=== PATIENT | male | born 1950 | race Hispanic/Latino ===

== ENCOUNTER 2023-12-15 18:01 | Inpatient (IN) | payer MEDICARE ==
[~2023-12-15] VITALS: Ht 167.6 cm; Wt 68.4 kg
[~2023-12-15 18:01] MED LIST: HEPARIN 10,000 UNIT/10ML (1,000 UNIT/ML) VIAL IV ONE
[2023-12-15 19:35] VITALS: BP 123/80; PULSE 90; RESP 18
[2023-12-15 19:40] VITALS: O2SAT 97
[2023-12-15 20:15] VITALS: PULSE 79; RESP 18; O2SAT 98
[2023-12-15 20:18] VITALS: PULSE 64; RESP 18; O2SAT 98
[2023-12-15] MEDS ORDERED: AMLO-257 PO (20:57)
[2023-12-15] MEDS ORDERED: TELM20TA8 PO (20:57)
[2023-12-15] MEDS ORDERED: METO-391 PO (20:57)
[2023-12-15] MEDS ORDERED: LEVO-70 PO (20:57)
[2023-12-15] MEDS ORDERED: ATOR10 PO (20:58)
[2023-12-15] MEDS ORDERED: INSULIN HUMULIN R 100 UNIT/ML 3ML SQ SCH (21:00)
[2023-12-15] MEDS ORDERED: NITROGLYCERIN 0.4 MG SL TAB SL PRN (22:30)
[2023-12-15] MEDS ORDERED: GLUCAGON 1MG KIT 1 MG ML IM PRN (22:30)
[2023-12-15] MEDS ORDERED: ACETAMINOPHEN 325 MG TAB PO PRN (22:30)
[2023-12-15] MEDS ORDERED: POTASSIUM CHLORIDE 10% ELIXIR 20 MEQ/15 ML UDCUP PO PRN (22:30)
[2023-12-15] MEDS ORDERED: DEXTROSE 50%-WATER 50 ML DISP.SYRIN IV PRN (22:30)
[2023-12-15] MEDS ORDERED: ONDANSETRON 4MG INJ IV PRN (22:30)
[2023-12-15] MEDS ORDERED: POTASSIUM CHLORIDE 20MEQ/100ML 100 ML IV PRN ×2 (22:30)
[2023-12-15 23:05] VITALS: BP 108/63; PULSE 73; RESP 22
[2023-12-16] VITALS (16 sets, daily range): BP systolic 97–140; BP diastolic 61–86; PULSE 63–111; RESP 16–20; O2SAT 95–99
[2023-12-16] MEDS: CEFTRIAXONE 1G VIAL IV SCH (00:35)
[2023-12-16 03:49] LABS: HEMATOCRIT 35.7 % (42-54); MEAN CORPUSCULAR HGB CONC 34.2 g/dL (32.0-36.0); MEAN CORPUSCULAR VOLUME 90.6 fL (79-99); RED BLOOD CELL COUNT(AUTO) 3.94 MIL/uL (4.50-6.20); RED CELL DISTRIBUTION WIDTH 12.9 % (11.0-15.5); WHITE BLOOD COUNT (AUTO) 6.9 K/uL (4.8-10.8)
[2023-12-16 04:12] LABS: INR 0.98 (0.85-1.15); PROTHROMBIN TIME 11.6 SEC (9.6-11.6)
[2023-12-16 04:13] LABS: PARTIAL THROMBOPLASTIN TIME 27.3 SEC (26.3-35.5)
[2023-12-16 04:26] LABS: HEMOGLOBIN A1C 6.7 % (4.0-6.0)
[2023-12-16 04:40] LABS: ALBUMIN 2.7 g/dL (3.5-5.0); BILIRUBIN,TOTAL 1.4 mg/dL (0.2-1.0); CREATININE 1.4 mg/dL (0.5-1.3); MAGNESIUM 1.7 mg/dL (1.80-2.40); POTASSIUM 3.6 mmol/L (3.5-5.1); THYROID STIMULATING HORMONE 1.78 uIU/mL (0.36-3.74); TOTAL PROTEIN, SERUM 6.1 g/dL (6.0-8.3)
[2023-12-16] MEDS: MAGNESIUM 2GM PREMIX 50ML 50 ML IV PRN (05:17)
[2023-12-16] MEDS: INSULIN HUMULIN R 100 UNIT/ML 3ML SQ SCH (05:46)
[2023-12-16] MEDS: ASPIRIN 81 MG EC TAB PO SCH (07:53)
[2023-12-16] MEDS: CLOPIDOGREL 75MG TAB PO SCH (07:53)
[2023-12-16] MEDS ORDERED: HEPARIN 10,000 UNIT/10ML (1,000 UNIT/ML) VIAL ONE (07:57)
[2023-12-16] MEDS ORDERED: FENTANYL CITRATE PF 50 MCG/1 ML 2ML VIAL ONE (07:57)
[2023-12-16] MEDS ORDERED: NICARDIPINE 25MG INJ IV ONE (07:57)
[2023-12-16] MEDS ORDERED: MIDAZOLAM HCL 1 MG/ML 2ML VIAL ONE (07:57)
[2023-12-16] MEDS ORDERED: IOHEXOL 350 MG/ML 100ML INFUS..BTL IV ONE (07:57)
[2023-12-16] MEDS ORDERED: NITROGLYCERIN 50MG VIAL ONE (07:58)
[2023-12-16] MEDS ORDERED: LIDOCAINE HCL 400MG/20ML VIAL ONE (08:00)
[2023-12-16] MEDS: METOPROLOL SUCCINATE 25 MG TAB.SR.24H PO SCH (09:00)
[2023-12-16] MEDS ORDERED: IOHEXOL-350 75 ML VIAL IV ONE (09:01)
[2023-12-16] MEDS ORDERED: DEXTROSE 50%-WATER 50 ML DISP.SYRIN IV PRN (10:00)
[2023-12-16] MEDS ORDERED: GLUCAGON 1MG KIT 1 MG ML IM PRN (10:00)
[2023-12-16 10:27] LABS: INR 0.95 (0.85-1.15); PROTHROMBIN TIME 11.3 SEC (9.6-11.6)
[2023-12-16 10:29] LABS: PARTIAL THROMBOPLASTIN TIME 26.2 SEC (26.3-35.5)
[2023-12-16] MEDS: HEPARIN 25,000 UNITS/250ML D5W 250 ML IV SCH (10:33)
[2023-12-16 10:49] LABS: ABG BASE EXCESS 1.4 mmol/L (-2.0-3.0); ABG HCO3 25.7 mmol/L (21.0-28.0); ABG OXYGEN SATURATION 92.9 % (95.0-99.0); ABG PCO2 40 mmHg (35-48); ABG PH 7.429 (7.35-7.450); CARBON MONOXIDE 0.4; DEVICE COMMENT RR VALENTINA; PO2, ARTERIAL BG 65.1 mmHg (83.0-108.0); VENT MODE, BG RA (ROOM AIR)
[2023-12-16] MEDS: KCL 20 MEQ ERTAB PO PRN (14:05)
[2023-12-16] MEDS: CLINDAMYCIN 600 MG/50 ML IV SCH (16:00)
[2023-12-16] MEDS: ATORVASTATIN 40 MG TABLET PO SCH (22:17)
[2023-12-17] VITALS (47 sets, daily range): BP systolic 47–207; BP diastolic 33–201; PULSE 82–144; RESP 5–27; TEMP 99.4–99.6; O2SAT 95–100
[2023-12-17 03:37] LABS: BASOPHILS # (AUTO) 0.02 K/uL (0.00-0.20); BASOPHILS % (AUTO) 0.3 % (0.0-5.0); EOSINOPHILS # (AUTO) 0.06 K/uL (0.00-0.70); EOSINOPHILS % (AUTO) 0.9 % (0.0-8.0); HEMATOCRIT 35.6 % (42-54); IMMATURE GRANULOCYTE ABSOLUTE 0.02 K/uL (0-1); LYMPHOCYTES # (AUTO) 1.1 K/uL (1.0-4.8); LYMPHOCYTES % (AUTO) 17.4 % (21.0-51.0); MEAN CORPUSCULAR HEMOGLOBIN 29.9 pg (27.0-33.0); MEAN CORPUSCULAR HGB CONC 34.6 g/dL (32.0-36.0); MEAN CORPUSCULAR VOLUME 86.6 fL (79-99); MONOCYTES # (AUTO) 0.6 K/uL (0.1-1.0); NEUTROPHILS # (AUTO) 4.7 K/uL (1.8-7.7); NEUTROPHILS % (AUTO) 72.1 % (40.0-77.0); PLATELET COUNT (AUTO) 184 K/uL (130-400); RED BLOOD CELL COUNT(AUTO) 4.11 MIL/uL (4.50-6.20); RED CELL DISTRIBUTION WIDTH 12.8 % (11.0-15.5); WHITE BLOOD COUNT (AUTO) 6.5 K/uL (4.8-10.8)
[2023-12-17 03:46] LABS: PROTHROMBIN TIME 11.8 SEC (9.6-11.6)
[2023-12-17 03:47] LABS: PARTIAL THROMBOPLASTIN TIME 62.8 SEC (26.3-35.5)
[2023-12-17 03:56] LABS: HEMOGLOBIN A1C 6.7 % (4.0-6.0)
[2023-12-17 04:00] LABS: B-TYPE NATRIURETIC PEPTIDE 718 pg/mL (0-100)
[2023-12-17 04:13] LABS: ALBUMIN 2.6 g/dL (3.5-5.0); BILIRUBIN,TOTAL 1.3 mg/dL (0.2-1.0); CREATININE 1.2 mg/dL (0.5-1.3); MAGNESIUM 1.8 mg/dL (1.80-2.40); PHOSPHORUS 3.7 mg/dL (2.5-4.9); POTASSIUM 3.4 mmol/L (3.5-5.1); TOTAL PROTEIN, SERUM 6.1 g/dL (6.0-8.3)
[2023-12-17] MEDS ORDERED: AMINOCAPROIC ACID 5,000MG VIAL 15,000 MG in 0.9% NACL 500ML IV.SOLN 420 ML IV PRN (10:30)
[2023-12-17] MEDS ORDERED: EPINEPHRINE PF 1MG (1:1,000) 10 MG in 0.9% NACL 250ML 240 ML IV PRN (10:30)
[2023-12-17] MEDS ORDERED: LIDOCAINE 2G/250ML 250 ML IV ONE (10:47)
[2023-12-17] MEDS ORDERED: NITROGLYCERIN 50MG/D5W 250ML 1 BOT ONE (10:55)
[2023-12-17] MEDS ORDERED: PAPAVERINE HCL 30 MG/ML 2ML VIAL ONE (11:03)
[2023-12-17] MEDS ORDERED: VANCOMYCIN 1G/250ML KIT 250 ML IV ONE (11:04)
[2023-12-17] MEDS: CLINDAMYCIN 900MG/6ML INJ IJ ONE (12:15)
[2023-12-17] MEDS ORDERED: SODIUM BICARB 50MEQ 50ML VIAL 200 ML ONE (12:18)
[2023-12-17] MEDS ORDERED: HEPARIN 10,000 UNIT/10ML (1,000 UNIT/ML) VIAL ONE (12:18)
[2023-12-17] MEDS ORDERED: PROPOFOL 10 MG/ML 20ML VIAL IV ONE (12:18)
[2023-12-17] MEDS ORDERED: EPINEPHRINE PF 1MG (1:1,000) 1 MG/ML AMP ONE (12:18)
[2023-12-17] MEDS ORDERED: NOREPINEPHRINE BITARTRATE 1 MG/1 ML ML IV ONE (12:18)
[2023-12-17] MEDS ORDERED: FENTANYL CITRATE PF 50 MCG/1 ML 20ML VIAL IJ ONE (12:18)
[2023-12-17] MEDS ORDERED: PROTAMINE SULFATE 10 MG/ML 25ML VIAL IV ONE (12:18)
[2023-12-17] MEDS ORDERED: LIDOCAINE PF 100MG/5ML (2%) SYRINGE 5ML ONE ×2 (12:18→13:45)
[2023-12-17] MEDS ORDERED: ROCURONIUM BROMIDE 10MG/1ML 5ML VL ONE (12:19)
[2023-12-17] MEDS ORDERED: AMIODARONE 150MG VIAL ONE ×2 (12:19→13:23)
[2023-12-17] MEDS ORDERED: ONDANSETRON 4MG INJ IV PRN (12:30)
[2023-12-17] MEDS ORDERED: DEXTROSE 50%-WATER 50 ML DISP.SYRIN IV PRN (12:30)
[2023-12-17] MEDS ORDERED: POTASSIUM PHOS 15 mMOL+NS250ML 250 ML IV PRN (12:30)
[2023-12-17] MEDS ORDERED: 0.9%NACL 10ML VIAL IVP PRN (12:30)
[2023-12-17] MEDS ORDERED: MORPHINE 2 MG SYG IV PRN ×2 (12:30→20:30)
[2023-12-17] MEDS ORDERED: 0.9% NACL 500ML IV.SOLN 500 ML IV SCH (12:30)
[2023-12-17] MEDS ORDERED: NOREPINEPHRINE BITARTRATE 8 MG in 0.9% NACL 250ML 250 ML IV PRN (12:30)
[2023-12-17] MEDS ORDERED: TRAMADOL HCL 50 MG TABLET PO PRN (12:30)
[2023-12-17] MEDS ORDERED: AMINOCAPROIC ACID 5,000MG VIAL 15,000 MG in 0.9% NACL 250ML 250 ML IV SCH (12:30)
[2023-12-17] MEDS ORDERED: MAGNESIUM HYDROXIDE 30 ML/UDCUP PO PRN (12:30)
[2023-12-17] MEDS ORDERED: PROPOFOL 1000 MG/100 ML 100 ML IV PRN (12:30)
[2023-12-17] MEDS ORDERED: MORPHINE 4 MG SYG IV PRN (12:30)
[2023-12-17] MEDS ORDERED: NITROGLYCERIN 50MG/D5W 250ML 250 BOT IV SCH (12:30)
[2023-12-17] MEDS ORDERED: GLUCAGON 1MG KIT 1 MG ML IM PRN (12:30)
[2023-12-17] MEDS ORDERED: ACETAMINOPHEN 650 MG SUPPOSITORY RC PRN (12:30)
[2023-12-17] MEDS ORDERED: ETOMIDATE 20MG VIAL ONE (13:46)
[2023-12-17] MEDS ORDERED: SODIUM BICARB 50MEQ 50ML VIAL 50 ML ONE (13:46)
[2023-12-17] MEDS ORDERED: MAGNESIUM SULFATE 4.06 MEQ/ML ***TPN USE ONLY IJ ONE ×2 (14:37→15:32)
[2023-12-17] MEDS ORDERED: ALBUMIN (HUMAN) 5% 500 ML IV ONE (15:19)
[2023-12-17] MEDS ORDERED: ALBUMIN (HUMAN) 5% 250 ML IV ONE ×2 (15:32→15:33)
[2023-12-17] MEDS: 0.9%NACL 1000ML 1,000 ML IV SCH (15:48)
[2023-12-17] MEDS: INSULIN REGULAR, HUMAN 3ML 100 UNIT in 0.9%NACL 100ML 99 ML IV SCH (15:50)
[2023-12-17 16:40] LABS: ABG BASE EXCESS 1.3 mmol/L (-2.0-3.0); ABG HCO3 25.7 mmol/L (21.0-28.0); ABG OXYGEN SATURATION 98.4 % (95.0-99.0); ABG PCO2 40 mmHg (35-48); CARBON MONOXIDE 0.2; HHb 1.6; PO2, ARTERIAL BG 273.3 mmHg (83.0-108.0); VENT MODE, BG SIMV (ROOM AIR)
[2023-12-17 16:56] LABS: HEMATOCRIT 23.5 % (42-54); MEAN CORPUSCULAR HEMOGLOBIN 29.9 pg (27.0-33.0); MEAN CORPUSCULAR HGB CONC 33.6 g/dL (32.0-36.0); RED BLOOD CELL COUNT(AUTO) 2.64 MIL/uL (4.50-6.20); RED CELL DISTRIBUTION WIDTH 12.6 % (11.0-15.5); WHITE BLOOD COUNT (AUTO) 17.2 K/uL (4.8-10.8)
[2023-12-17] MEDS: POTASSIUM CHLORIDE 20MEQ/100ML 100 ML IV PRN (17:00)
[2023-12-17] MEDS: ALBUMIN (HUMAN) 5% 250 ML IV PRN (17:01)
[2023-12-17] MEDS: ASPIRIN 81MG CHEW TAB NG ONE (17:02)
[2023-12-17 17:05] LABS: INR 1.39 (0.85-1.15)
[2023-12-17 17:06] LABS: CREATININE 1.2 mg/dL (0.5-1.3); MAGNESIUM 1.7 mg/dL (1.80-2.40); PHOSPHORUS 5.1 mg/dL (2.5-4.9); POTASSIUM 3.8 mmol/L (3.5-5.1)
[2023-12-17] MEDS: DESMOPRESSIN 40MCG INJ 20 MCG in 0.9%NACL 50ML 50 ML IJ SCH (17:21)
[2023-12-17 17:42] LABS: ABG BASE EXCESS -2.7 mmol/L (-2.0-3.0); ABG HCO3 21.4 mmol/L (21.0-28.0); ABG OXYGEN SATURATION 98.7 % (95.0-99.0); ABG PCO2 34 mmHg (35-48); ABG PH 7.423 (7.35-7.450); CARBON MONOXIDE 0.3; DEVICE COMMENT A LINE RNRICHRD; HHb 1.3; PO2, ARTERIAL BG 322.1 mmHg (83.0-108.0); VENT MODE, BG ALINE (ROOM AIR)
[2023-12-17] MEDS: SODIUM BICARB 50MEQ 50ML VIAL IV PRN (17:44)
[2023-12-17 18:43] LABS: ABG BASE EXCESS -0.2 mmol/L (-2.0-3.0); ABG HCO3 23.8 mmol/L (21.0-28.0); ABG OXYGEN SATURATION 98.2 % (95.0-99.0); ABG PCO2 36 mmHg (35-48); ABG PH 7.443 (7.35-7.450); CARBON MONOXIDE 0.3; HHb 1.8; PO2, ARTERIAL BG 190.4 mmHg (83.0-108.0); VENT MODE, BG SIMV PS10 (ROOM AIR)
[2023-12-17 19:40] LABS: ABG BASE EXCESS 0.5 mmol/L (-2.0-3.0); ABG HCO3 24.5 mmol/L (21.0-28.0); ABG OXYGEN SATURATION 98.2 % (95.0-99.0); ABG PCO2 37 mmHg (35-48); ABG PH 7.443 (7.35-7.450); CARBON MONOXIDE 0.3; HHb 1.8; PO2, ARTERIAL BG 191.3 mmHg (83.0-108.0); VENT MODE, BG SIMV PS10 (ROOM AIR)
[2023-12-17] MEDS: MAGNESIUM 2GM PREMIX 50ML 50 ML IV PRN (19:51)
[2023-12-17] MEDS: DOCUSATE SODIUM 100 MG CAP PO ONE (20:00)
[2023-12-17] MEDS: CLINDAMYCIN IVPB 900MG/50ML 50 ML IV SCH (20:30)
[2023-12-17] MEDS: FAMOTIDINE 20MG VIAL IV SCH (20:31)
[2023-12-17 20:45] LABS: ABG BASE EXCESS -1.1 mmol/L (-2.0-3.0); ABG HCO3 22.8 mmol/L (21.0-28.0); ABG OXYGEN SATURATION 98.3 % (95.0-99.0); ABG PCO2 34 mmHg (35-48); CARBON MONOXIDE 0.3; HHb 1.7; PO2, ARTERIAL BG 197.3 mmHg (83.0-108.0); VENT MODE, BG SIMV PS10 (ROOM AIR)
[2023-12-17] MEDS: NOREPINEPHRIN 8MG/250ML NS 250 ML IV PRN (21:45)
[2023-12-17 21:58] LABS: ABG HCO3 27.8 mmol/L (21.0-28.0); ABG OXYGEN SATURATION 98.1 % (95.0-99.0); ABG PCO2 38 mmHg (35-48); ABG PH 7.483 (7.35-7.450); CARBON MONOXIDE 0.3; HHb 1.9; PO2, ARTERIAL BG 181.1 mmHg (83.0-108.0); VENT MODE, BG SIMV PS10 (ROOM AIR)
[2023-12-17] MEDS: VASOPRESSIN 40 UNITS in 0.9%NACL 50ML 40 ML IV SCH (22:28)
[2023-12-17] MEDS ORDERED: ALBUMIN (HUMAN) 5% 500 ML IV SCH (22:30)
[2023-12-17] MEDS: VASOPRESSIN 20 UNITS/ML 1ML VIAL ONE (22:30)
[2023-12-17] MEDS: ALBUMIN (HUMAN) 5% 500 ML IV ONE (22:31)
[2023-12-17 23:03] LABS: ABG BASE EXCESS 1.6 mmol/L (-2.0-3.0); ABG HCO3 25.5 mmol/L (21.0-28.0); ABG PCO2 37 mmHg (35-48); ABG PH 7.459 (7.35-7.450); CARBON MONOXIDE 0.3; PO2, ARTERIAL BG 168.7 mmHg (83.0-108.0); VENT MODE, BG SIMV PS10 (ROOM AIR)
[2023-12-18] VITALS (102 sets, daily range): BP systolic 91–166; BP diastolic 37–112; PULSE 60–164; RESP 9–28; TEMP 98.9–100; O2SAT 97–100
[2023-12-18] MEDS: ACETAMINOPHEN 325 MG TAB PO PRN ×2 (00:07→18:21)
[2023-12-18 00:22] LABS: ABG BASE EXCESS 3.3 mmol/L (-2.0-3.0); ABG HCO3 27.5 mmol/L (21.0-28.0); ABG OXYGEN SATURATION 96.8 % (95.0-99.0); ABG PCO2 40 mmHg (35-48); ABG PH 7.458 (7.35-7.450); CARBON MONOXIDE 0.1; HHb 3.1; PO2, ARTERIAL BG 105.8 mmHg (83.0-108.0); VENT MODE, BG CAFM (ROOM AIR)
[2023-12-18 06:35] LABS: ABG BASE EXCESS 2.9 mmol/L (-2.0-3.0); ABG HCO3 26.5 mmol/L (21.0-28.0); ABG OXYGEN SATURATION 97.7 % (95.0-99.0); ABG PCO2 36 mmHg (35-48); ABG PH 7.484 (7.35-7.450); CARBON MONOXIDE 0.5; HHb 2.3; PO2, ARTERIAL BG 124.2 mmHg (83.0-108.0); VENT MODE, BG CAFM (ROOM AIR)
[2023-12-18] MEDS ORDERED: VASOPRESSIN 40 UNITS in 0.9%NACL 50ML 40 ML IV SCH (07:30)
[2023-12-18] MEDS: FUROSEMIDE 20MG VIAL IV SCH (07:38)
[2023-12-18] MEDS: TRAMADOL HCL 50 MG TABLET PO PRN (08:43)
[2023-12-18] MEDS ORDERED: EPOETIN ALFA-EPBX (NON-ESRD) 10,000 UNIT/ML VIAL SQ SCH (09:00)
[2023-12-18] MEDS: EPOETIN ALFA-EPBX (NON-ESRD) 10,000 UNIT/ML VIAL SQ ONE (09:55)
[2023-12-18] MEDS: IRON SUCROSE COMPLEX 300 MG in 0.9% NACL 250ML 250 ML IV SCH (10:19)
[2023-12-18 11:49] LABS: ABG OXYGEN SATURATION 98.1 % (95.0-99.0); ABG PCO2 39 mmHg (35-48); ABG PH 7.474 (7.35-7.450); CARBON MONOXIDE 0.9; HHb 1.9; PO2, ARTERIAL BG 133.6 mmHg (83.0-108.0); VENT MODE, BG 2LNC (ROOM AIR)
[2023-12-18] MEDS: CALCIUM GLUC 1GM 1 GM in 0.9%NACL 50ML 50 ML IV PRN (11:55)
[2023-12-18] MEDS: AMIODARONE 900MG VIAL 150 MG in DEXTROSE 5%-WATER 100 ML IV SCH ×2 (20:33→22:30)
[2023-12-18] MEDS: AMIODARONE 900MG VIAL 360 MG in DEXTROSE 5%-WATER 200 ML IV SCH (20:34)
[2023-12-18] MEDS: EPINEPHRINE PF 1MG (1:1,000) 10 MG in 0.9% NACL 250ML 240 ML IV PRN (21:03)
[2023-12-18] MEDS: AMIODARONE 150MG VIAL ONE (22:33)
[2023-12-19] VITALS (99 sets, daily range): BP systolic 89–164; BP diastolic 38–83; PULSE 67–141; RESP 10–58; TEMP 98.3–99.3; O2SAT 99–100
[2023-12-19] MEDS: AMIODARONE 900MG VIAL 540 MG in DEXTROSE 5%-WATER 300 ML IV PRN (02:36)
[2023-12-19 03:38] LABS: ABG BASE EXCESS 1.9 mmol/L (-2.0-3.0); ABG HCO3 25.9 mmol/L (21.0-28.0); ABG OXYGEN SATURATION 97.8 % (95.0-99.0); ABG PCO2 37 mmHg (35-48); CARBON MONOXIDE 0.9; HHb 2.2; VENT MODE, BG NC (ROOM AIR)
[2023-12-19 05:18] LABS: BASOPHILS # (AUTO) 0.02 K/uL (0.00-0.20); BASOPHILS % (AUTO) 0.1 % (0.0-5.0); IMMATURE GRANULOCYTE ABSOLUTE 0.15 K/uL (0-1); LYMPHOCYTES % (AUTO) 6.7 % (21.0-51.0); MEAN CORPUSCULAR HEMOGLOBIN 30.4 pg (27.0-33.0); MEAN CORPUSCULAR HGB CONC 33.7 g/dL (32.0-36.0); MEAN CORPUSCULAR VOLUME 90.2 fL (79-99); MONOCYTES # (AUTO) 1.3 K/uL (0.1-1.0); MONOCYTES % (AUTO) 8.6 % (3.0-13.0); NEUTROPHILS # (AUTO) 12.8 K/uL (1.8-7.7); NEUTROPHILS % (AUTO) 83.6 % (40.0-77.0); PLATELET COUNT (AUTO) 84 K/uL (130-400); RED BLOOD CELL COUNT(AUTO) 2.04 MIL/uL (4.50-6.20); RED CELL DISTRIBUTION WIDTH 13.4 % (11.0-15.5); WHITE BLOOD COUNT (AUTO) 15.3 K/uL (4.8-10.8)
[2023-12-19] MEDS: CALCIUM GLUC 1GM/10ML VIAL ONE (05:26)
[2023-12-19 05:29] LABS: CREATININE 1.5 mg/dL (0.5-1.3); MAGNESIUM 2.1 mg/dL (1.80-2.40); POTASSIUM 4.2 mmol/L (3.5-5.1)
[2023-12-19 05:30] LABS: INR 1.38 (0.85-1.15); PROTHROMBIN TIME 15.9 SEC (9.6-11.6)
[2023-12-19 05:31] LABS: PARTIAL THROMBOPLASTIN TIME 38.2 SEC (26.3-35.5)
[2023-12-19 05:33] LABS: HEMATOCRIT 18.4 % (42-54)
[2023-12-19] MEDS: CYANOCOBALAMIN (VITAMIN B-12) 1,000 MCG TABLET PO SCH (08:06)
[2023-12-19] MEDS: FOLIC ACID 1 MG TABLET PO SCH (08:06)
[2023-12-19] MEDS: FUROSEMIDE 20 MG TABLET PO SCH (08:06)
[2023-12-19] MEDS ORDERED: DIGOXIN 250 MCG/ML 2ML AMP IV ONE (08:30)
[2023-12-19] MEDS: AMIODARONE 150MG VIAL 150 MG in DEXTROSE 5%-WATER 100 ML IV SCH (08:55)
[2023-12-19] MEDS: DIGOXIN 250 MCG/ML 2ML AMP IV SCH ×2 (10:26→16:08)
[2023-12-19] MEDS: LACTULOSE 20 GM/30 ML UDCUP PO PRN (10:42)
[2023-12-19 11:47] LABS: HEMATOCRIT 17.7 % (42-54)
[2023-12-19] MEDS: INSULIN HUMULIN R 100 UNIT/ML 3ML SQ SCH (11:51)
[2023-12-19] MEDS: AMIODARONE 200 MG TABLET PO SCH (17:21)
[2023-12-20] VITALS (105 sets, daily range): BP systolic -6–149; BP diastolic -7–81; PULSE 98–132; RESP 14–134; TEMP 97.4–99.7; O2SAT 98–100
[2023-12-20 04:14] LABS: BASOPHILS # (AUTO) 0.04 K/uL (0.00-0.20); BASOPHILS % (AUTO) 0.2 % (0.0-5.0); EOSINOPHILS # (AUTO) 0.02 K/uL (0.00-0.70); EOSINOPHILS % (AUTO) 0.1 % (0.0-8.0); IMMATURE GRANULOCYTE ABSOLUTE 0.22 K/uL (0-1); LYMPHOCYTES # (AUTO) 1.3 K/uL (1.0-4.8); LYMPHOCYTES % (AUTO) 7.5 % (21.0-51.0); MEAN CORPUSCULAR HEMOGLOBIN 31.1 pg (27.0-33.0); MEAN CORPUSCULAR HGB CONC 35.3 g/dL (32.0-36.0); MEAN CORPUSCULAR VOLUME 88.3 fL (79-99); NEUTROPHILS # (AUTO) 14.7 K/uL (1.8-7.7); NEUTROPHILS % (AUTO) 84.9 % (40.0-77.0); NUCLEATED RED BLOOD CELLS 0.8 % (0.0-0.19); PLATELET COUNT (AUTO) 95 K/uL (130-400); RED BLOOD CELL COUNT(AUTO) 1.96 MIL/uL (4.50-6.20); RED CELL DISTRIBUTION WIDTH 13.7 % (11.0-15.5); WHITE BLOOD COUNT (AUTO) 17.3 K/uL (4.8-10.8)
[2023-12-20 05:18] LABS: HEMATOCRIT 17.3 % (42-54)
[2023-12-20 05:32] LABS: ALBUMIN 2.8 g/dL (3.5-5.0); BILIRUBIN,TOTAL 1.5 mg/dL (0.2-1.0); CREATININE 1.3 mg/dL (0.5-1.3); MAGNESIUM 1.7 mg/dL (1.80-2.40); POTASSIUM 3.8 mmol/L (3.5-5.1); TOTAL PROTEIN, SERUM 5.3 g/dL (6.0-8.3)
[2023-12-20] MEDS ORDERED: COMPOUND IV MISC 1 EACH IVSOLN MISC PRN (08:00)
[2023-12-20] MEDS: FAMOTIDINE 20MG VIAL IV SCH (09:16)
[2023-12-20] MEDS: DIGOXIN 125 MCG TABLET PO SCH (09:17)
[2023-12-20] MEDS: AMIODARONE 200 MG TABLET PO SCH (09:17)
[2023-12-20] MEDS: MEROPENEM 1 GM in 0.9%NACL 100ML 100 ML IV SCH (09:35)
[2023-12-20] MEDS: IPRATROPIUM 0.5 MG/2.5 ML INH IH SCH (11:23)
[2023-12-21] VITALS (122 sets, daily range): BP systolic -25–160; BP diastolic -26–99; PULSE 90–124; RESP 12–114; TEMP 98.6–99.8; O2SAT 96–100
[2023-12-21] MEDS: DIGOXIN 250 MCG/ML 2ML AMP ONE (00:33)
[2023-12-21] MEDS: DIGOXIN 250 MCG/ML 2ML AMP IV ONE (00:35)
[2023-12-21 04:42] LABS: BASOPHILS # (AUTO) 0.03 K/uL (0.00-0.20); BASOPHILS % (AUTO) 0.2 % (0.0-5.0); EOSINOPHILS # (AUTO) 0.06 K/uL (0.00-0.70); EOSINOPHILS % (AUTO) 0.4 % (0.0-8.0); IMMATURE GRANULOCYTE ABSOLUTE 0.54 K/uL (0-1); LYMPHOCYTES # (AUTO) 1.3 K/uL (1.0-4.8); LYMPHOCYTES % (AUTO) 8.9 % (21.0-51.0); MEAN CORPUSCULAR HEMOGLOBIN 31.7 pg (27.0-33.0); MEAN CORPUSCULAR HGB CONC 33.7 g/dL (32.0-36.0); MONOCYTES # (AUTO) 1.2 K/uL (0.1-1.0); MONOCYTES % (AUTO) 8.1 % (3.0-13.0); NEUTROPHILS # (AUTO) 11.7 K/uL (1.8-7.7); NEUTROPHILS % (AUTO) 78.8 % (40.0-77.0); NUCLEATED RED BLOOD CELLS 3.8 % (0.0-0.19); PLATELET COUNT (AUTO) 113 K/uL (130-400); RED BLOOD CELL COUNT(AUTO) 1.83 MIL/uL (4.50-6.20); RED CELL DISTRIBUTION WIDTH 13.8 % (11.0-15.5); WHITE BLOOD COUNT (AUTO) 14.9 K/uL (4.8-10.8)
[2023-12-21 04:48] LABS: HEMATOCRIT 17.2 % (42-54)
[2023-12-21 05:10] LABS: ALBUMIN 2.5 g/dL (3.5-5.0); BILIRUBIN,TOTAL 1.7 mg/dL (0.2-1.0); CREATININE 1.1 mg/dL (0.5-1.3); MAGNESIUM 1.7 mg/dL (1.80-2.40); POTASSIUM 3.6 mmol/L (3.5-5.1); TOTAL PROTEIN, SERUM 4.9 g/dL (6.0-8.3)
[2023-12-21 05:20] LABS: DIGOXIN 3.06 ng/mL (0.50-2.00)
[2023-12-21] MEDS: DIGOXIN 250 MCG/ML 2ML AMP IV SCH (10:13)
[2023-12-21] MEDS ORDERED: MAGNESIUM 2GM PREMIX 50ML 50 ML IV SCH (12:00)
[2023-12-21] MEDS ORDERED: LACTULOSE 20 GM/30 ML UDCUP PO PRN (12:30)
[2023-12-21 12:49] LABS: % IRON SATURATION 83.4 % (30-44)
[2023-12-21] MEDS: POLYETHYLENE GLYCOL 3350 17 GM POWD.PACK PO ONE (14:07)
[2023-12-21] MEDS: POTASSIUM CHLORIDE 20MEQ/100ML 100 ML IV ONE (14:07)
[2023-12-21] MEDS: LACTULOSE 20 GM/30 ML UDCUP PO ONE (14:07)
[2023-12-21] MEDS: EPOETIN ALFA-EPBX (NON-ESRD) 10,000 UNIT/ML VIAL SQ SCH (14:39)
[2023-12-21] MEDS: IRON SUCROSE COMPLEX 100 MG/5 ML VIAL IV SCH (15:21)
[2023-12-21] MEDS ORDERED: EPOETIN ALFA-EPBX (NON-ESRD) 10,000 UNIT/ML VIAL SQ SCH (16:00)
[2023-12-21] MEDS: NOREPINEPHRIN 8MG/250ML NS 250 ML IV ONE (16:07)
[2023-12-21] MEDS: MIDODRINE HCL 5 MG TABLET PO SCH (20:36)
[2023-12-22] VITALS (124 sets, daily range): BP systolic 88–137; BP diastolic 36–86; PULSE 80–128; RESP 14–60; O2SAT 98–100
[2023-12-22 03:27] LABS: MEAN CORPUSCULAR HEMOGLOBIN 31.7 pg (27.0-33.0); MEAN CORPUSCULAR HGB CONC 33.7 g/dL (32.0-36.0); MEAN CORPUSCULAR VOLUME 94.1 fL (79-99); NUCLEATED RED BLOOD CELLS 9.6 % (0.0-0.19); PLATELET COUNT (AUTO) 138 K/uL (130-400); RED BLOOD CELL COUNT(AUTO) 1.86 MIL/uL (4.50-6.20); RED CELL DISTRIBUTION WIDTH 14.3 % (11.0-15.5); WHITE BLOOD COUNT (AUTO) 14.4 K/uL (4.8-10.8)
[2023-12-22 03:35] LABS: HEMATOCRIT 17.5 % (42-54)
[2023-12-22 03:58] LABS: DIGOXIN 2.32 ng/mL (0.50-2.00)
[2023-12-22 04:23] LABS: LYMPHOCYTES % (MANUAL) 6 % (22-44); MONOCYTES % (MANUAL) 4 % (2-9); SEGMENTED NEUTROPHILS % 90 % (40-70); TOTAL CELLS COUNTED 100
[2023-12-22 04:24] LABS: MAN.DIFF COMMENT-IMPRESSION MANUAL DIFFERENTIAL; PLATELET MORPHOLOGY COMMENT ADEQUATE; WBC MORPHOLOGY SMUDGE CELLS 1+
[2023-12-22 04:58] LABS: CREATININE 1.2 mg/dL (0.5-1.3); POTASSIUM 3.6 mmol/L (3.5-5.1)
[2023-12-22] MEDS: POLYETHYLENE GLYCOL 3350 17 GM POWD.PACK PO SCH (08:45)
[2023-12-22] MEDS: Vitamin B Complex/Vit C/Folic Acid PO SCH (08:46)
[2023-12-22] MEDS ORDERED: CYANOCOBALAMIN (VITAMIN B-12) 1,000 MCG TABLET PO SCH (09:00)
[2023-12-22] MEDS: PHYTONADIONE 10 MG in 0.9%NACL 50ML 50 ML IVPB ONE (22:41)
[2023-12-23] VITALS (109 sets, daily range): BP systolic 83–143; BP diastolic 42–87; PULSE 75–123; RESP 12–34; O2SAT 99–100
[2023-12-23] MEDS ORDERED: COMPOUND IV REFRIGERATED 1 EACH IVSOLN MISC PRN (08:30)
[2023-12-23] MEDS: PHYTONADIONE 10 MG in 0.9%NACL 50ML 50 ML IVPB ONE (22:22)
[2023-12-24] VITALS (21 sets, daily range): BP systolic 98–120; BP diastolic 45–71; PULSE 74–100; RESP 11–20; O2SAT 96–100
[2023-12-25] VITALS (13 sets, daily range): BP systolic 96–127; BP diastolic 54–67; PULSE 68–91; RESP 18–20; TEMP 99.8; O2SAT 96–98
[2023-12-25 06:44] LABS: ABG BASE EXCESS 2.8 mmol/L (-2.0-3.0); ABG HCO3 24.2 mmol/L (21.0-28.0); ABG OXYGEN SATURATION 97.9 % (95.0-99.0); ABG PCO2 25 mmHg (35-48); DEVICE COMMENT RR RA; PO2, ARTERIAL BG 110.8 mmHg (83.0-108.0)
[2023-12-25 07:10] LABS: ABG BASE EXCESS 1.8 mmol/L (-2.0-3.0); ABG HCO3 25.4 mmol/L (21.0-28.0); ABG OXYGEN SATURATION 94.3 % (95.0-99.0); ABG PCO2 35 mmHg (35-48); ABG PH 7.475 (7.35-7.450); CARBON MONOXIDE 1.7; DEVICE COMMENT RBTANYA; HHb 5.6; PO2, ARTERIAL BG 72.5 mmHg (83.0-108.0); VENT MODE, BG RA (ROOM AIR)
[2023-12-25] MEDS: METOPROLOL TARTRATE 25 MG TAB PO SCH (09:55)
[2023-12-25] MEDS: FUROSEMIDE 20MG VIAL IV SCH (21:00)
[2023-12-26] VITALS (13 sets, daily range): BP systolic 102–110; BP diastolic 57–67; PULSE 70–82; RESP 18–20; O2SAT 94–99
[2023-12-26 03:46] LABS: BASOPHILS # (AUTO) 0.02 K/uL (0.00-0.20); BASOPHILS % (AUTO) 0.2 % (0.0-5.0); EOSINOPHILS # (AUTO) 0.08 K/uL (0.00-0.70); EOSINOPHILS % (AUTO) 0.9 % (0.0-8.0); HEMATOCRIT 23.7 % (42-54); IMMATURE GRANULOCYTE ABSOLUTE 0.19 K/uL (0-1); LYMPHOCYTES % (AUTO) 10.7 % (21.0-51.0); MEAN CORPUSCULAR HEMOGLOBIN 34.2 pg (27.0-33.0); MEAN CORPUSCULAR HGB CONC 32.1 g/dL (32.0-36.0); MEAN CORPUSCULAR VOLUME 106.8 fL (79-99); MONOCYTES # (AUTO) 0.9 K/uL (0.1-1.0); MONOCYTES % (AUTO) 9.8 % (3.0-13.0); NEUTROPHILS # (AUTO) 6.9 K/uL (1.8-7.7); NEUTROPHILS % (AUTO) 76.3 % (40.0-77.0); NUCLEATED RED BLOOD CELLS 5.2 % (0.0-0.19); PLATELET COUNT (AUTO) 182 K/uL (130-400); RED BLOOD CELL COUNT(AUTO) 2.22 MIL/uL (4.50-6.20); WHITE BLOOD COUNT (AUTO) 9.1 K/uL (4.8-10.8)
[2023-12-26 04:02] LABS: CREATININE 1.1 mg/dL (0.5-1.3); MAGNESIUM 1.9 mg/dL (1.80-2.40); POTASSIUM 4.3 mmol/L (3.5-5.1)
[2023-12-26 05:35] LABS: EOSINOPHILS % (MANUAL) 3 % (1-6); LYMPHOCYTES % (MANUAL) 3 % (22-44); MAN.DIFF COMMENT-IMPRESSION MANUAL DIFFERENTIAL; MONOCYTES % (MANUAL) 9 % (2-9); PLATELET MORPHOLOGY COMMENT ADEQUATE; SEGMENTED NEUTROPHILS % 85 % (40-70); TOTAL CELLS COUNTED 100; WBC MORPHOLOGY SMUDGE CELLS 1+
[2023-12-26] MEDS: MIDODRINE HCL 5 MG TABLET PO SCH (20:10)
[2023-12-27] VITALS (14 sets, daily range): BP systolic 96–111; BP diastolic 52–72; PULSE 68–84; RESP 18–20; O2SAT 97–99
[2023-12-27] MEDS: FAMOTIDINE 20MG TAB PO SCH (20:07)
[2023-12-27] MEDS: FUROSEMIDE 20MG VIAL IV SCH (20:08)
[2023-12-28] VITALS (11 sets, daily range): BP systolic 100–113; BP diastolic 51–66; PULSE 70–84; RESP 18–20; O2SAT 98–99
[2023-12-28 04:26] LABS: HEMATOCRIT 25.3 % (42-54); MEAN CORPUSCULAR HGB CONC 32.4 g/dL (32.0-36.0); NUCLEATED RED BLOOD CELLS 0.5 % (0.0-0.19); PLATELET COUNT (AUTO) 197 K/uL (130-400); RED BLOOD CELL COUNT(AUTO) 2.41 MIL/uL (4.50-6.20); WHITE BLOOD COUNT (AUTO) 8.2 K/uL (4.8-10.8)
[2023-12-28 04:39] LABS: CREATININE 1.2 mg/dL (0.5-1.3); POTASSIUM 3.8 mmol/L (3.5-5.1)
[2023-12-29] VITALS (13 sets, daily range): BP systolic 91–110; BP diastolic 53–63; PULSE 66–82; RESP 18–21; O2SAT 95–100
[2023-12-29] MEDS ORDERED: IPRATROPIUM 0.5 MG/2.5 ML INH IH PRN (10:00)
[2023-12-30] VITALS (12 sets, daily range): BP systolic 87–112; BP diastolic 52–68; PULSE 66–102; RESP 16–20; O2SAT 96–99
[2023-12-30] MEDS: METOPROLOL TARTRATE 25 MG TAB PO SCH (09:15)
[2023-12-30 21:11] LABS: CREATININE 1.3 mg/dL (0.5-1.3); MAGNESIUM 1.8 mg/dL (1.80-2.40); POTASSIUM 3.8 mmol/L (3.5-5.1)
[2023-12-31 03:43] LABS: BASOPHILS # (AUTO) 0.03 K/uL (0.00-0.20); BASOPHILS % (AUTO) 0.5 % (0.0-5.0); EOSINOPHILS # (AUTO) 0.08 K/uL (0.00-0.70); EOSINOPHILS % (AUTO) 1.3 % (0.0-8.0); IMMATURE GRANULOCYTE ABSOLUTE 0.02 K/uL (0-1); LYMPHOCYTES # (AUTO) 0.7 K/uL (1.0-4.8); LYMPHOCYTES % (AUTO) 10.7 % (21.0-51.0); MEAN CORPUSCULAR HEMOGLOBIN 34.3 pg (27.0-33.0); MEAN CORPUSCULAR HGB CONC 32.4 g/dL (32.0-36.0); MEAN CORPUSCULAR VOLUME 105.8 fL (79-99); MONOCYTES # (AUTO) 0.7 K/uL (0.1-1.0); NEUTROPHILS # (AUTO) 4.9 K/uL (1.8-7.7); NEUTROPHILS % (AUTO) 76.2 % (40.0-77.0); PLATELET COUNT (AUTO) 230 K/uL (130-400); RED BLOOD CELL COUNT(AUTO) 3.12 MIL/uL (4.50-6.20); RED CELL DISTRIBUTION WIDTH 24.6 % (11.0-15.5); WHITE BLOOD COUNT (AUTO) 6.4 K/uL (4.8-10.8)
[2023-12-31 03:55] LABS: CREATININE 1.3 mg/dL (0.5-1.3); MAGNESIUM 2.4 mg/dL (1.80-2.40); PHOSPHORUS 2.2 mg/dL (2.5-4.9); POTASSIUM 3.6 mmol/L (3.5-5.1)
[2023-12-31 04:11] VITALS: BP 100/55; PULSE 67; RESP 20
[2023-12-31] MEDS: KCL 20 MEQ ERTAB PO ONE ×2 (06:04→12:19)
[2023-12-31 07:12] VITALS: BP 109/60; PULSE 73; RESP 18
[2023-12-31 09:30] VITALS: O2SAT 97
[2023-12-31 11:49] VITALS: BP 112/65; PULSE 70; RESP 18
[2023-12-31] MEDS ORDERED: LACTULOSE 20 GM/30 ML UDCUP PO SCH (21:00)
[2023-12-31] MEDS ORDERED: LACTULOSE 20 GM/30 ML UDCUP PO PRN (21:00)
== END 2023-12-31 13:30 | DRG 233 ==
LOC: 2AH 19:23 → 2CV 12-17 12:52 → 2BH 12-18 18:34 → 2DH 12-24 03:27
PROVIDERS: ADMIT Hospitalist; ATTEND Hospitalist
PROC: 4A023N7 Measurement of Cardiac Sampling and Pressure, Left Heart, Percutaneous Approach (ICD-10-PCS; 2023-12-16)
PROC: B2111ZZ Fluoroscopy of Multiple Coronary Arteries using Low Osmolar Contrast (ICD-10-PCS; 2023-12-16)
PROC: B24BZZ4 Ultrasonography of Heart with Aorta, Transesophageal (ICD-10-PCS; 2023-12-17)
PROC: 02100Z9 Bypass Coronary Artery, One Artery from Left Internal Mammary, Open Approach (ICD-10-PCS; principal; 2023-12-17 12:15)
PROC: 021209W Bypass Coronary Artery, Three Arteries from Aorta with Autologous Venous Tissue, Open Approach (ICD-10-PCS; 2023-12-17 12:15)
PROC: 06BQ4ZZ Excision of Left Saphenous Vein, Percutaneous Endoscopic Approach (ICD-10-PCS; 2023-12-17 12:15)
PROC: 5A02210 Assistance with Cardiac Output using Balloon Pump, Continuous (ICD-10-PCS; 2023-12-17 12:15)
PROC: 02HV33Z Insertion of Infusion Device into Superior Vena Cava, Percutaneous Approach (ICD-10-PCS; 2023-12-21)
DX: I25.10 Atherosclerotic heart disease of native coronary artery without angina pectoris (principal); I50.43 Acute on chronic combined systolic (congestive) and diastolic (congestive) heart failure; J96.01 Acute respiratory failure with hypoxia; R57.0 Cardiogenic shock; J95.1 Acute pulmonary insufficiency following thoracic surgery; D62 Acute posthemorrhagic anemia; I13.0 Hypertensive heart and chronic kidney disease with heart failure and stage 1 through stage 4 chronic kidney disease, or unspecified chronic kidney disease; I48.91 Unspecified atrial fibrillation; E83.42 Hypomagnesemia; N18.30 Chronic kidney disease, stage 3 unspecified; D69.6 Thrombocytopenia, unspecified; E11.22 Type 2 diabetes mellitus with diabetic chronic kidney disease; E78.00 Pure hypercholesterolemia, unspecified; I25.5 Ischemic cardiomyopathy; I48.0 Paroxysmal atrial fibrillation; R62.7 Adult failure to thrive; T46.0X5A Adverse effect of cardiac-stimulant glycosides and drugs of similar action, initial encounter; Y92.89 Other specified places as the place of occurrence of the external cause; Z74.01 Bed confinement status; Z79.82 Long term (current) use of aspirin; Z79.899 Other long term (current) drug therapy; Z82.49 Family history of ischemic heart disease and other diseases of the circulatory system; Z87.442 Personal history of urinary calculi; Z88.0 Allergy status to penicillin
CPT/HCPCS: 36415; 36600; 71045; 76376; 80048; 80053; 80061; 80162; 82435; 82728; 82803; 82947; 82948; 83036; 83540; 83550; 83605; 83735; 83880; 84100; 84132; 84145; 84295; 84443; 84484; 85014; 85018; 85025; 85027; 85347; 85384; 85610; 85730; 86850; 86880; 86900; 86901; 86923; 87641; 92610; 93005; 93308; 93312; 93318; 93356; 93454; 93880; 93971; 94002; 94010; 94150; 94640; 94664; 94667; 94668; 94760; 99156; 99157; A4357; A4606; A7048; C1760; C1894; G0378; J0171; J0282; J0612; J0696; J1160; J1644; J1756; J1815; J1940; J2001; J2185; J2250; J2440; J2597; J2704; J2720; J3010; J3370; J3430; J3475; J3480; J3490; J7030; J7040; J7050; J7060; J7120; P9045; Q9967; A4215; A4216; A4222; A4223; A4315; A4452; A4510; A4600; A4649; A4657; A4663; A5120; A6204; A6219; C1713; C1769; C1776; C1887; Q5106; Q9965